=== PATIENT | male | born 1955 | race Caucasian/White ===

== ENCOUNTER 2018-02-05 18:56 | Emergency (ER) | payer OTHER ==
[~2018-02-05] VITALS: Ht 177.8 cm; Wt 99.8 kg
--- NOTE | 2018-02-05 19:13 | NUR ---
PT AMBULATORY TO ER BED 15. BIB SELF C/O URINARY RETENTION X 2 DAYS. PT PLACED ON OPTICAL EFFECTS LINE UP PERSON. PT VSS/NAD NOTED/RESP EVEN UNLABORED/SKIN WARM AND DRY/DENIES N-V-D/AFEBRILE/AOX4. AWAITING MD PARKS.
--- NOTE | 2018-02-05 19:20 | NUR ---
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
--- NOTE | 2018-02-05 19:30 | NUR ---
16FR COUDE CATHETER INSERTED USING DEBURR TECHNICIAN, 300ML PALE, CLEAR URINE NOTED. PT TOLERATED PROCEDURE WELL.
--- NOTE | 2018-02-05 19:44 | NUR ---
URINE SPECIMEN OBTAINED AND SENT TO THE LAB.
[2018-02-05 19:54] LABS: APPEARANCE,URINE Clear (CLEAR); BILIRUBIN,URINE Negative (NEGATIVE); BLOOD, URINE Negative Ery/uL (NEGATIVE); COLOR,URINE Yellow (YELLOW); KETONES,URINE Negative (NEGATIVE); LEUKOCYTE ESTERASE ,URINE Negative (NEGATIVE); NITRITE, URINE Negative (NEGATIVE); PH,URINE 5.5 (5.0-8.0); PROTEIN,URINE Negative (NEGATIVE); UGLUCOSE Negative (NEGATIVE); UROBILINOGEN,URINE 0.2 EU/dL (0.2)
--- NOTE | 2018-02-05 20:44 | NUR ---
Patient discharged to home in stable condition. Written and verbal after care instructions given. Patient discharged with garcias catheter intact with leg bag and home instructions per MD order. Patient verbalizes understanding of instruction. Patient ambulatory with a steady gait.
[2018-02-05 20:46] VITALS: BP 131/86
== END 2018-02-05 20:46 | disposition home or self-care (01) ==
LOC: ER 19:00
DX: R33.9 Retention of urine, unspecified (principal)
CPT/HCPCS: 51702; 81001; 99284; A4606; Z7610; 81000-TC

== ENCOUNTER 2018-02-10 06:13 | Emergency (ER) | payer OTHER ==
[~2018-02-10] VITALS: Ht 177.8 cm; Wt 99.8 kg
[2018-02-10 06:16] VITALS: BP 147/77
== END 2018-02-10 07:21 | disposition home or self-care (01) ==
LOC: ER 06:17
DX: R33.9 Retention of urine, unspecified (principal)
CPT/HCPCS: A4606; Z7502; Z7610

== ENCOUNTER 2018-02-13 01:26 | Emergency (ER) | payer OTHER ==
[~2018-02-13] VITALS: Ht 177.8 cm; Wt 99.8 kg
[2018-02-13] MEDS ORDERED: LIDOCAINE 2% JEL UROJET 10 ML MM ONE ×2 (01:57→02:00)
--- NOTE | 2018-02-13 02:01 | NUR ---
PT PRESENTED TO THE ER WITH A C/O URINARY RETENTION. PT AMBULATED TO BED #9 WITH A STEADY GAIT.
--- NOTE | 2018-02-13 02:06 | NUR ---
GARCIAS CATH INSERTED BY CARMEN GARCIA. 16 FR garcias catheter inserted per sterile protocal WITH A UROJET. Immediate output 50ML of urine, YELLOW, clarity IS CLEAR.
[2018-02-13 03:04] LABS: APPEARANCE,URINE CLEAR (CLEAR); BILIRUBIN,URINE NEGATIVE (NEGATIVE); BLOOD, URINE TRACE Ery/uL (NEGATIVE); COLOR,URINE YELLOW (YELLOW); KETONES,URINE 1+ (NEGATIVE); LEUKOCYTE ESTERASE ,URINE NEGATIVE (NEGATIVE); NITRITE, URINE NEGATIVE (NEGATIVE); PROTEIN,URINE NEGATIVE (NEGATIVE); UGLUCOSE NEGATIVE (NEGATIVE); UROBILINOGEN,URINE 0.2 EU/dL (0.2)
[2018-02-13 03:21] LABS: BACTERIA,URINE None seen /HPF (None Seen); RBC,URINE 0-2 /HPF (0-2); SQUAMOUS EPITHELIAL CELL,UR Few /HPF (None Seen); WBC,URINE 0-2 /HPF (0-3)
--- NOTE | 2018-02-13 03:32 | NUR ---
Patient discharged to home in stable condition. Written and verbal after care instructions given. Patient verbalizes understanding of instruction.
[2018-02-13 03:41] VITALS: BP 139/69
== END 2018-02-13 03:42 | disposition home or self-care (01) ==
LOC: ER 01:31
DX: R33.9 Retention of urine, unspecified (principal)
CPT/HCPCS: 51701; 81001; 99284; A4606; J3490; Z7610; 81000-TC

== ENCOUNTER 2018-02-17 03:24 | Emergency (ER) | payer OTHER ==
[~2018-02-17] VITALS: Ht 177.8 cm; Wt 98.4 kg
[2018-02-17] MEDS ORDERED: LIDOCAINE 2% JEL UROJET 10 ML MM ONE ×2 (03:51→04:00)
[2018-02-17 04:23] LABS: APPEARANCE,URINE SL CLOUDY (CLEAR); BILIRUBIN,URINE NEGATIVE (NEGATIVE); BLOOD, URINE 3+ Ery/uL (NEGATIVE); COLOR,URINE YELLOW (YELLOW); KETONES,URINE TRACE (NEGATIVE); LEUKOCYTE ESTERASE ,URINE NEGATIVE (NEGATIVE); NITRITE, URINE NEGATIVE (NEGATIVE); PROTEIN,URINE NEGATIVE (NEGATIVE); UGLUCOSE NEGATIVE (NEGATIVE); UROBILINOGEN,URINE 0.2 EU/dL (0.2)
[2018-02-17 04:52] LABS: BACTERIA,URINE None seen /HPF (None Seen); MUCUS,URINE Moderate /LPF (None Seen); RBC,URINE 21-50 /HPF (0-2); SQUAMOUS EPITHELIAL CELL,UR Moderate /HPF (None Seen); WBC,URINE 0-2 /HPF (0-3)
[2018-02-17 05:28] VITALS: BP 120/72
== END 2018-02-17 05:29 | disposition home or self-care (01) ==
LOC: ER 03:27
DX: R33.8 Other retention of urine (principal); N40.0 Benign prostatic hyperplasia without lower urinary tract symptoms
CPT/HCPCS: 51702; 81001; 99284; A4606; J3490; Z7610; 81000-TC

== ENCOUNTER 2018-02-19 14:29 | Emergency (ER) | payer OTHER ==
[~2018-02-19] VITALS: Ht 177.8 cm; Wt 97.5 kg
[2018-02-19 14:30] VITALS: BP 123/77
[2018-02-19] MEDS ORDERED: MAGNESIUM CITRATE 296 ML BOTTLE PO ONE (16:30)
[2018-02-19] MEDS ORDERED: MAGNESIUM CITRATE 296 ML BOTTLE ONE (16:37)
== END 2018-02-19 17:25 | disposition home or self-care (01) ==
LOC: ER 14:30
DX: K59.00 Constipation, unspecified (principal)
CPT/HCPCS: 74018; 99283; A4606; Z7610

== ENCOUNTER 2018-02-19 19:10 | Emergency (ER) | payer OTHER ==
[~2018-02-19] VITALS: Ht 177.8 cm; Wt 97.5 kg
[2018-02-19 19:20] VITALS: BP 103/66
--- NOTE | 2018-02-19 21:06 | NUR ---
URINE SPECIMEN OBTAINED AND SENT TO THE LAB.
[2018-02-19 21:15] LABS: APPEARANCE,URINE Slightly Cloudy (CLEAR); BILIRUBIN,URINE MODERATE (NEGATIVE); BLOOD, URINE Large Ery/uL (NEGATIVE); COLOR,URINE Dark (YELLOW); KETONES,URINE 15 (NEGATIVE); LEUKOCYTE ESTERASE ,URINE Negative (NEGATIVE); NITRITE, URINE Negative (NEGATIVE); PH,URINE 5.5 (5.0-8.0); PROTEIN,URINE >=300 mg/dl (NEGATIVE); UGLUCOSE Negative (NEGATIVE)
[2018-02-19 21:22] LABS: BACTERIA,URINE 1+ /HPF (None Seen); RBC,URINE TOO NUMEROUS TO COUN /HPF (0-2); WBC,URINE NONE SEEN /HPF (0-3)
[2018-02-19 21:23] LABS: HYALINE CASTS, URINE Many /LPF (None Seen); SQUAMOUS EPITHELIAL CELL,UR None Seen /HPF (None Seen)
== END 2018-02-19 21:36 | disposition home or self-care (01) ==
LOC: ER 19:12
DX: T83.098A Other mechanical complication of other urinary catheter, initial encounter (principal); K59.00 Constipation, unspecified; Y92.89 Other specified places as the place of occurrence of the external cause
CPT/HCPCS: 81000-TC; A4606; Z7610

== ENCOUNTER 2018-02-28 02:16 | Emergency (ER) | payer OTHER ==
[~2018-02-28] VITALS: Ht 177.8 cm; Wt 99.8 kg
--- NOTE | 2018-02-28 02:16 | NUR ---
PT BB SELF C/O CONSTIPATION AND "BLADDER FEELS FULL". PT HAS BEEN HERE CONSISTENTLY FOR THE LAST MONTH WITH THESE SAME SYMTPOMS. VSS NAD A/OX4 ABLE TO MAKE NEEDS KNOWN. WILL CONTINUE TO MONITOR FOR ANY CHANGES DURING THE SHIFT.
--- NOTE | 2018-02-28 02:17 | NUR ---
ER MD NAIK AT BEDSIDE FOR EVAL
[2018-02-28] MEDS ORDERED: MAGNESIUM HYDROXIDE 30 ML UDC ONE (02:47)
[2018-02-28] MEDS ORDERED: MAGNESIUM CITRATE 296 ML BOTTLE ONE (02:48)
[2018-02-28] MEDS ORDERED: MAGNESIUM CITRATE 296 ML BOTTLE PO ONE (03:00)
[2018-02-28] MEDS ORDERED: MAGNESIUM HYDROXIDE 30 ML UDC PO ONE (03:00)
--- NOTE | 2018-02-28 03:00 | NUR ---
BLADDER SCAN DONE ON PT DUE TO VERBAL ORDER BY MARY NAIK
--- NOTE | 2018-02-28 03:01 | NUR ---
BLADDER SCAN SHOWED 115 CC OF URINE. WILL NOT IRRIGATE KANG CATH
[2018-02-28] MEDS ORDERED: NA PHOS,M-B/NA PHOS,DI-BA 1 EA ENEMA RC ONE ×2 (04:00→04:07)
[2018-02-28 04:55] VITALS: BP 126/78
== END 2018-02-28 04:56 | disposition home or self-care (01) ==
LOC: ER 02:17
DX: T83.098A Other mechanical complication of other urinary catheter, initial encounter (principal); K59.00 Constipation, unspecified; Z98.890 Other specified postprocedural states
CPT/HCPCS: 99284; A4606; Z7610

== ENCOUNTER 2018-02-28 09:54 | Emergency (ER) | payer OTHER ==
[~2018-02-28] VITALS: Ht 157.5 cm; Wt 61.2 kg
[2018-02-28 10:10] VITALS: BP 122/69
--- NOTE | 2018-02-28 10:27 | NUR ---
KANG LEG BAG CHANGED, PER PT REQUEST.
== END 2018-02-28 11:00 | disposition home or self-care (01) ==
LOC: ER 09:55
DX: T83.031A Leakage of indwelling urethral catheter, initial encounter (principal); R33.9 Retention of urine, unspecified; Z98.890 Other specified postprocedural states
CPT/HCPCS: 99284; A4606; Z7610

== ENCOUNTER 2018-03-12 18:48 | Emergency (ER) | payer OTHER ==
[~2018-03-12] VITALS: Ht 177.8 cm; Wt 97.5 kg
[2018-03-12 18:57] VITALS: BP 116/73
--- NOTE | 2018-03-12 19:15 | NUR ---
ASSUMED CARE OF PT. PT RESTING IN BED WITH NO S/S OF DISTRESS NOTED
--- NOTE | 2018-03-12 19:43 | NUR ---
OLD KANG CATH BAG REPLACED WITH A NEW ONE PER .
[2018-03-12 19:56] LABS: APPEARANCE,URINE Cloudy (CLEAR); BILIRUBIN,URINE Negative (NEGATIVE); BLOOD, URINE Large Ery/uL (NEGATIVE); COLOR,URINE Dark (YELLOW); KETONES,URINE Trace (NEGATIVE); LEUKOCYTE ESTERASE ,URINE Trace (NEGATIVE); NITRITE, URINE Positive (NEGATIVE); PH,URINE 5.5 (5.0-8.0); PROTEIN,URINE >=300 mg/dl (NEGATIVE); UGLUCOSE Negative (NEGATIVE)
[2018-03-12 20:07] LABS: BACTERIA,URINE Moderate /HPF (None Seen); CALCIUM OXALATE CRYSTALS,UR Few /HPF (None Seen); RBC,URINE 81-100 /HPF (0-2); SQUAMOUS EPITHELIAL CELL,UR Few /HPF (None Seen); WBC,URINE 51-80 /HPF (0-3)
== END 2018-03-12 20:52 | disposition home or self-care (01) ==
LOC: ER 18:53
DX: N39.0 Urinary tract infection, site not specified (principal); Z98.890 Other specified postprocedural states; Z60.2 Problems related to living alone
CPT/HCPCS: 81000-TC; 87086-TC; A4606; Z7610

== ENCOUNTER 2018-03-13 22:56 | Emergency (ER) | payer OTHER ==
[~2018-03-13] VITALS: Ht 177.8 cm; Wt 97.5 kg
[2018-03-13 23:10] VITALS: BP 118/73
[2018-03-14] MEDS ORDERED: NITROFURANTOIN/NITROFURAN MAC 100 MG CAPSULE ONE (00:20)
[2018-03-14] MEDS ORDERED: NITROFURANTOIN/NITROFURAN MAC 100 MG CAPSULE PO ONE (00:30)
== END 2018-03-14 00:36 | disposition home or self-care (01) ==
LOC: ER 22:57
DX: N39.0 Urinary tract infection, site not specified (principal); Z98.890 Other specified postprocedural states; Z60.2 Problems related to living alone; Z46.6 Encounter for fitting and adjustment of urinary device
CPT/HCPCS: A4606; Z7610

== ENCOUNTER 2018-03-16 22:31 | Emergency (ER) | payer OTHER ==
[~2018-03-16] VITALS: Ht 180.3 cm; Wt 81.6 kg
[2018-03-16 23:28] VITALS: BP 115/68
== END 2018-03-16 23:30 | disposition home or self-care (01) ==
LOC: ER 22:32
DX: N40.1 Benign prostatic hyperplasia with lower urinary tract symptoms (principal); R33.8 Other retention of urine; F41.9 Anxiety disorder, unspecified; Z60.2 Problems related to living alone; Z98.890 Other specified postprocedural states
CPT/HCPCS: 99284; A4606; Z7610; Z7502

== ENCOUNTER 2018-03-21 16:52 | Emergency (ER) | payer OTHER ==
[~2018-03-21] VITALS: Ht 182.9 cm; Wt 81.6 kg
[2018-03-21 16:52] VITALS: BP 155/103
[2018-03-21 17:43] LABS: APPEARANCE,URINE Slightly Cloudy (CLEAR); BILIRUBIN,URINE Negative (NEGATIVE); BLOOD, URINE Large Ery/uL (NEGATIVE); COLOR,URINE Dark (YELLOW); KETONES,URINE Trace (NEGATIVE); LEUKOCYTE ESTERASE ,URINE Negative (NEGATIVE); NITRITE, URINE Negative (NEGATIVE); PH,URINE 5.5 (5.0-8.0); PROTEIN,URINE 100 mg/dl (NEGATIVE); UGLUCOSE Negative (NEGATIVE); UROBILINOGEN,URINE 0.2 EU/dL (0.2)
[2018-03-21 17:54] LABS: RBC,URINE 21-50 /HPF (0-2)
[2018-03-21 17:55] LABS: BACTERIA,URINE Few /HPF (None Seen); MUCUS,URINE Moderate /LPF (None Seen); SQUAMOUS EPITHELIAL CELL,UR Few /HPF (None Seen)
== END 2018-03-21 18:32 | disposition home or self-care (01) ==
LOC: ER 16:54
DX: T83.89XA Other specified complication of genitourinary prosthetic devices, implants and grafts, initial encounter (principal); F41.9 Anxiety disorder, unspecified; Z87.448 Personal history of other diseases of urinary system; Z98.890 Other specified postprocedural states; Z60.2 Problems related to living alone
CPT/HCPCS: 81001; 87086; 99284; A4606; Z7610; 81000-TC

== ENCOUNTER 2018-04-11 16:30 | Emergency (ER) | payer OTHER ==
[~2018-04-11] VITALS: Ht 180.3 cm; Wt 108.9 kg
[2018-04-11] MEDS ORDERED: KETOROLAC TROMETHAMINE INJ 30 MG/ML VIAL IM ONE (17:00)
[2018-04-11 18:14] LABS: APPEARANCE,URINE Clear (CLEAR); BILIRUBIN,URINE Negative (NEGATIVE); BLOOD, URINE Moderate Ery/uL (NEGATIVE); COLOR,URINE Yellow (YELLOW); KETONES,URINE Negative (NEGATIVE); LEUKOCYTE ESTERASE ,URINE Small (NEGATIVE); NITRITE, URINE Negative (NEGATIVE); PH,URINE 5.5 (5.0-8.0); PROTEIN,URINE Negative (NEGATIVE); UGLUCOSE Negative (NEGATIVE); UROBILINOGEN,URINE 0.2 EU/dL (0.2)
[2018-04-11 18:19] LABS: BACTERIA,URINE Few /HPF (None Seen); RBC,URINE 21-50 /HPF (0-2); SQUAMOUS EPITHELIAL CELL,UR Rare /HPF (None Seen)
[2018-04-11 18:20] LABS: CALCIUM OXALATE CRYSTALS,UR Rare /HPF (None Seen)
[2018-04-11 18:36] VITALS: BP 132/80
== END 2018-04-11 18:38 | disposition home or self-care (01) ==
LOC: ER 16:32
DX: N39.0 Urinary tract infection, site not specified (principal); Z46.6 Encounter for fitting and adjustment of urinary device; Z98.890 Other specified postprocedural states; I50.9 Heart failure, unspecified; Z60.2 Problems related to living alone
CPT/HCPCS: 81001; 84703; 87086; 99284; A4606; Z7610; 81000-TC

== ENCOUNTER 2018-04-18 20:43 | Emergency (ER) | payer OTHER ==
[~2018-04-18] VITALS: Ht 177.8 cm; Wt 86.2 kg
[2018-04-18 20:49] VITALS: BP 106/71
[2018-04-18 21:36] LABS: APPEARANCE,URINE Slightly Cloudy (CLEAR); BILIRUBIN,URINE SMALL (NEGATIVE); BLOOD, URINE Moderate Ery/uL (NEGATIVE); COLOR,URINE Dark (YELLOW); KETONES,URINE Trace (NEGATIVE); LEUKOCYTE ESTERASE ,URINE Negative (NEGATIVE); NITRITE, URINE Positive (NEGATIVE); PROTEIN,URINE >=300 mg/dl (NEGATIVE); UGLUCOSE 100 MG/DL mg/dL (NEGATIVE)
[2018-04-18 21:48] LABS: BACTERIA,URINE Few /HPF (None Seen); RBC,URINE 51-80 /HPF (0-2); SQUAMOUS EPITHELIAL CELL,UR Rare /HPF (None Seen)
[2018-04-18] MEDS ORDERED: IBUPROFEN 600 MG TABLET PO ONE ×2 (22:00→22:04)
== END 2018-04-18 22:14 | disposition home or self-care (01) ==
LOC: ER 20:46
DX: T83.84XA Pain due to genitourinary prosthetic devices, implants and grafts, initial encounter (principal); I50.9 Heart failure, unspecified; Z85.46 Personal history of malignant neoplasm of prostate; Z98.890 Other specified postprocedural states; Z60.2 Problems related to living alone
CPT/HCPCS: 81000-TC; 87086-TC; A4606; Z7610